=== PATIENT | female | born 1995 | race Caucasian/White ===

== ENCOUNTER 2016-12-09 21:59 | Emergency (ER) | payer MEDICAID ==
[~2016-12-09] VITALS: Ht 162.6 cm; Wt 51.1 kg
[~2016-12-09 21:59] MED LIST: PREN27TA4
[2016-12-09 22:15] VITALS: BP 123/79; PULSE 74; RESP 20; TEMP 98.4; O2SAT 100
[2016-12-09] MEDS ORDERED: SUMAtriptan INJ 6 MG/0.5 ML VIAL SQ ONE (23:45)
--- NOTE | 2016-12-09 23:47 | PD ---
HPI Chief Complaint: Headache Time Seen by Provider: 23:35 Travel History International Travel<30 days: No Contact w/Intl Traveler<30days: No Traveled to known affect area: No History of Present Illness HPI This 21-year-old female is complaining of headache. She has a history of migraine headaches. She has been having a headache throughout the day. It is a diffuse headache associated with photophobia. She has had nausea and vomiting. She has had headaches like this before. There is no weakness numbness or tingling. PFSH Past Medical History Hx Anticoagulant Therapy: No Anemia: Yes (IRON DEFICIENCY ALPHATHALASSEMIA) Cardiovascular Problems: No Chemotherapy: No Cerebrovascular Accident: No Diabetes: No Diminished Hearing: No Headaches: Yes Respiratory: No Immunizations Current: Yes Seizures: No Influenza Vaccination: No ?: Not LMP: 12/03/16 Menopausal: No : 1 Para: 1 Ovarian Cysts: Yes (PCOS) Past Surgical History Hysterectomy: No Social History Alcohol Use: Yes (3X WEEK BEER ) Tobacco Use: No Substance Use: No Allergies-Medications (Allergen,Severity, Reaction): Coded Allergies: No Known Allergies (Verified , 12/09/16) Reported Meds & Prescriptions Reported Meds & Active Scripts Active No Active Prescriptions or Reported Medications Review of Systems General / Constitutional: No: Fever, Chills Eyes: Positive: Photophobia, No: Diploplia HENT: Positive: Headaches, No: Lightheadedness Cardiovascular: No: Chest Pain or Discomfort, Palpitations Respiratory: No: Cough, Shortness of Breath Gastrointestinal: Positive: Nausea, Vomiting Genitourinary: No: Urgency, Frequency Musculoskeletal: No: Myalgias, Arthralgias Skin: No Rash, No Itching Neurologic: No: Weakness Endocrine: No: Heat Intolerance Physical Exam Narrative GENERAL: Well-developed female. SKIN: Warm and dry. HEAD: Atraumatic. Normocephalic. EYES: Pupils equal and round. No scleral icterus. No injection or drainage. ENT: No nasal bleeding or discharge. Mucous membranes pink and moist. NECK: Trachea midline. No JVD. CARDIOVASCULAR: Regular rate and rhythm. No murmur appreciated. RESPIRATORY: No accessory muscle use. Clear to auscultation. Breath sounds equal bilaterally. GASTROINTESTINAL: Abdomen soft, non-tender, nondistended. Hepatic and splenic margins not palpable. MUSCULOSKELETAL: No obvious deformities. No clubbing. No cyanosis. No edema. NEUROLOGICAL: Awake and alert. No obvious cranial nerve deficits. Motor grossly within normal limits. Normal speech. PSYCHIATRIC: Appropriate mood and affect; insight and judgment normal. Data Data Last Documented VS Vital Signs Date Time Temp Pulse Resp B/P Pulse Ox O2 Delivery O2 Flow Rate FiO2 12/09/16 22:15 98.4 74 20 123/79 100 Orders Sumatriptan Inj (Imitrex Inj) (12/09/16 23:45) [facility] Medical Decision Making Medical Screen Exam Complete: Yes Emergency Medical Condition: Yes Medical Record Reviewed: Yes Differential Diagnosis Differential includes migraine headache, tension headache Narrative Course Patient says She has history of migraine headaches. She does not recall having Imitrex before. She was given an injection of Imitrex. After this she reports her headache is subsiding though she is still nauseated. I will describe some Zofran. She will be released with prescription for Fioricet and Zofran Diagnosis Primary Impression: Migraine headache Qualified Code: G43.009 - Migraine without aura and without status migrainosus , not intractable Scripts No Active Prescriptions or Reported Meds Disposition: DISCHARGE HOME Condition: Stable Rickie Woody MD Dec 09, 2016 23:47
[2016-12-10] MEDS ORDERED: BUTA1CAP PO (00:10)
[2016-12-10] MEDS ORDERED: ZOFR4TAB3 SL (00:10)
[2016-12-10] MEDS ORDERED: ONDANSETRON ODT 4 MG TAB PO ONE (00:15)
[2016-12-10 00:46] VITALS: RESP 16
== END 2016-12-10 00:49 | disposition home or self-care (01) ==
LOC: PHED 21:59 → PHEFT 12-10 00:49
DX: G43.009 Migraine without aura, not intractable, without status migrainosus (principal)
CPT/HCPCS: 96372; 99283; J3030

== ENCOUNTER 2017-06-22 14:50 | Emergency (ER) | payer MEDICAID ==
[~2017-06-22] VITALS: Ht 162.6 cm; Wt 54.0 kg
[~2017-06-22 14:50] MED LIST changes: +BUTA1CAP PO; -PREN27TA4; +ZOFR4TAB3 SL
[2017-06-22 14:56] VITALS: BP 136/66; PULSE 135; RESP 16; TEMP 99.9; O2SAT 100
[2017-06-22] MEDS ORDERED: ACETAMINOPHEN 325 MG TAB PO ONE (15:15)
[2017-06-22] MEDS ORDERED: AMOX500C PO (15:48)
--- NOTE | 2017-06-22 15:54 | PD ---
HPI Chief Complaint: Cold / Flu Symptoms Time Seen by Provider: 15:18 Travel History International Travel<30 days: No Contact w/Intl Traveler<30days: No Traveled to known affect area: No History of Present Illness HPI 22-year-old presents to the emergency room for evaluation of sore throat, body aches, fever, chills for 2 days. Maximum temperature at home was 101. Patient has been taking Motrin for fevers. States sore throat is severe and worse on the left side. Radiates into her ear. Denies chronic medical conditions or daily medications. Denies cough, congestion. PFSH Past Medical History Hx Anticoagulant Therapy: No Anemia: Yes (IRON DEFICIENCY ALPHATHALASSEMIA) Cardiovascular Problems: No Chemotherapy: No Cerebrovascular Accident: No Diabetes: No Diminished Hearing: No Headaches: Yes Respiratory: No Immunizations Current: Yes Seizures: No ?: Not LMP: 05/31/17 Menopausal: No : 1 Para: 1 Ovarian Cysts: Yes (PCOS) Past Surgical History Hysterectomy: No Social History Alcohol Use: Yes (3X WEEK BEER ) Tobacco Use: No Substance Use: No Allergies-Medications (Allergen,Severity, Reaction): Coded Allergies: No Known Allergies (Verified , 06/22/17) Reported Meds & Prescriptions Reported Meds & Active Scripts Active No Active Prescriptions or Reported Medications Review of Systems Except as stated in HPI: all other systems reviewed are Neg Physical Exam Narrative GENERAL: Well-nourished, well-developed female in no acute distress. Afebrile. Ambulatory. SKIN: Focused skin assessment warm/dry. HEAD: Normocephalic. EYES: No scleral icterus. No injection or drainage. NECK: Supple, trachea midline. No JVD or lymphadenopathy. ENT: Mucosa pink and moist. Moderate to severe erythema and left-sided exudates. No uvular edema. No uvular, palatal, or tonsillar deviation. Airway patent. Tonsils 2+ and equal. Halitosis. Nasal turbinates appear normal without nasal blood, purulent drainage or septal hematoma. EARS: Bilateral pinnae and external canals appear within normal limits; occluded bilaterally with cerumen. CARDIOVASCULAR: Regular rate and rhythm without murmurs, gallops, or rubs. RESPIRATORY: Breath sounds equal bilaterally. No accessory muscle use. Data Data Last Documented VS Vital Signs Date Time Temp Pulse Resp B/P (MAP) Pulse Ox O2 Delivery O2 Flow Rate FiO2 06/22/17 14:56 99.9 135 16 136/66 (89) 100 Orders Orders Acetaminophen (Tylenol) (06/22/17 15:15) Group A Rapid Strep Screen (06/22/17 15:14) Oral Rehydration (06/22/17 15:14) Strep Culture (Group A) (06/22/17 15:18) MDM Medical Decision Making Medical Screen Exam Complete: Yes Emergency Medical Condition: Yes Medical Record Reviewed: Yes Differential Diagnosis Strep, URI, mononucleosis Narrative Course 22-year-old female presents to the emergency room for evaluation of sore throat , fever, body aches for the past 2 days. Maximum temperature at home was 101. Patient is tachycardic at 135 bpm. Temperature is 99.9 degrees. She was given oral rehydration and Tylenol. Upon recheck, heart rate had decreased significantly to 106 bpm. Physical exam reveals moderate to severe erythema of the pharynx with left-sided exudates. She has associated halitosis. Rapid strep is negative. Patient states she was somnolent on the right side of her throat and its the left side that is hurting and affected. Given history and physical exam, patient will be treated empirically for strep throat. Told to follow up with a PCP or return for worsening symptoms. She understands and agrees to plan. Diagnosis Primary Impression: Strep throat Referrals: Primary Care Physician Additional Instructions: Rest and drink plenty of fluids. Take amoxicillin as directed, until gone. Tylenol and Motrin for fever and pain. Follow-up with a primary care physician. Return to the emergency room for worsening symptoms. Med/Other Pt SpecificInfo: Prescription(s) given Scripts Amoxicillin (Amoxicillin) 500 Mg Cap 500 MG PO BID for Infection for 10 Days, CAP 0 Refills Prov: Bg Stein MD 06/22/17 Disposition: 01 DISCHARGE HOME Condition: Stable Vanessa Galindo Jun 22, 2017 15:54
[2017-06-22 16:05] VITALS: PULSE 106; RESP 20; O2SAT 98
== END 2017-06-22 16:17 | disposition home or self-care (01) ==
LOC: PHED 14:50 → PHEFT 16:17
DX: J02.0 Streptococcal pharyngitis (principal)
CPT/HCPCS: 87081; 87880; 99283

== ENCOUNTER 2018-01-10 13:07 | Emergency (ER) | payer MEDICAID ==
[~2018-01-10] VITALS: Ht 165.1 cm; Wt 50.8 kg
[~2018-01-10 13:07] MED LIST changes: +AMOX500C PO; -BUTA1CAP PO; -ZOFR4TAB3 SL
[2018-01-10 13:15] VITALS: BP 125/82; PULSE 126; RESP 16; TEMP 98.4; O2SAT 100
[2018-01-10] MEDS ORDERED: ACETAMINOPHEN/HYDROcodone 325 MG/5 MG TAB PO ONE (13:30)
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
[2018-01-10] MEDS ORDERED: ONDANSETRON ODT 4 MG TAB PO ONE (13:45)
[2018-01-10] MEDS ORDERED: HYDR-3516 PO (14:09)
[2018-01-10] MEDS ORDERED: ZOFR4TAB3 SL (14:09)
[2018-01-10] MEDS ORDERED: DICL75TA PO (14:09)
--- NOTE | 2018-01-10 14:13 | RADRPT ---
EXAM DATE/TIME: 01/10/2018 13:55 [facility] COMPARISON: No previous studies available for comparison. INDICATIONS : Fall, left hand pain, worse base of index finger MEDICAL HISTORY : None. SURGICAL HISTORY : None. ENCOUNTER: Initial ACUITY: 1 day PAIN SCORE: 10/10 LOCATION: Left hand FINDINGS: There is a mildly displaced fracture of the second metacarpal shaft. No dislocation. No other fractur es are seen. CONCLUSION: 1. Mildly displaced left second metacarpal fracture. Kameron Oneil MD on January 10, 2018 at 14:11 Board Certified Radiologist. This report was verified electronically.
== END 2018-01-10 14:45 | disposition home or self-care (01) ==
LOC: PHEFT 13:07
DX: S62.351A Nondisplaced fracture of shaft of second metacarpal bone, left hand, initial encounter for closed fracture (principal); W18.30XA Fall on same level, unspecified, initial encounter; Z72.89 Other problems related to lifestyle
CPT/HCPCS: 29125; 73130